=== PATIENT | female | born 1970 ===

== ENCOUNTER 2018-08-26 00:06 | Day surgery (SDC) | payer SELFPAY ==
[~2018-08-26] VITALS: Ht 149.9 cm; Wt 51.3 kg
[2018-08-26] VITALS (7 sets, daily range): BP systolic 88–117; BP diastolic 55–83
[~2018-08-26 00:06] MED LIST: AMOX-362 PO; CHOL10005 PO; IRON18TA2 PO; LORA-629 PO; PANT40TA65 PO
[2018-08-26] MEDS ORDERED: NORMOSOL R SOLN(*) 1000 ML BAG 1,000 ML IV PRN (06:45)
[2018-08-26] MEDS ORDERED: LIDOCAINE/SOD BICARB 8.4% SYR ID ONE (06:45)
[2018-08-26] MEDS ORDERED: PROPOFOL EMUL(*) 10MG/ML 20 ML 40 ML ONE (07:12)
[2018-08-26] MEDS ORDERED: SUCR1TAB85 PO (08:17)
--- NOTE | 2018-08-26 08:20 | Short(Outpt) Discharge Summary ---
Discharge Summary Reason for Hosp/Final Diag: (1) [facility] Hospital Course & Plan: pt with anemia, melena presented for egd. she tolerated the procedure well. hb will be checked. will prescribe protonix and sucralfate. pt will be discharged home when criteria met. Departure Discharge to: Home Discharge Instructions Home Meds Active Scripts Sucralfate (CARAFATE) 1 Gm Tablet, 1 GM PO Q6H, #90 TAB Prov:JESUS NUR 08/26/18 Reported Medications Iron (IRON) 18 Mg Tablet, PO TIDCF 08/24/18 Loratadine (LORATADINE) 10 Mg Tablet, 10 MG PO DAILY 08/24/18 Cholecalciferol (Vitamin D3) (VITAMIN D3) 1,000 Unit Tablet, 1000 UNIT PO DAILY, TAB 08/24/18 Pantoprazole Sodium (PANTOPRAZOLE SODIUM) 40 Mg Tablet.dr, 40 MG PO QDAY, TAB.SR 08/24/18 Amoxicillin (AMOXICILLIN) 500 Mg Capsule, PO Q8H, #15 CAPSULE 08/24/18 Diet: Regular Activity: As Tolerated Special Instructions: taken protonix 40 mg by mouth twice/day. taken sucralfate as prescribed. we will call you in 10 days with biopsy results. JESUS NUR August 26, 2018 08:20
--- NOTE | 2018-08-26 08:31 | NUR ---
lab here to draw hgb.
--- NOTE | 2018-08-26 08:37 | NUR ---
EATING APPLE SAUCE. DENIES PAIN.
--- NOTE | 2018-08-26 09:00 | NUR ---
BP DROPPED WITH STANDING. REPORTS FEELING A LITTLE DIZZY. ASSISTED TO BED. BOLUS OF NR GIVEN
--- NOTE | 2018-08-26 09:20 | NUR ---
ORTHOSTATIC VSS. BP IMPROVED AFTER FLUID BOLUS. IV DC'D CATHLON INTACT. DRESSED SELF. DISCHARGE INSTRUCTIONS REVIEWED WITH PT AND HER BOTH STATE UNDERSTANDING. DR NUR REVIEWED DISCHARGE INSTRUCTIONS IN [facility] AND PLAN FOR FOLLOW UP.
== END 2018-08-26 09:20 | disposition home or self-care (01) ==
LOC: OR 00:06
PROVIDERS: ATTEND Surgery
DX: K29.70 Gastritis, unspecified, without bleeding (principal)
CPT/HCPCS: 43239; 85018; 87077; 88305; 88342; J2704

== ENCOUNTER → 2018-10-04 | Outpatient (CLI) | payer SELFPAY ==
[~2018-10-04] MED LIST changes: +SUCR1TAB85 PO
== END ==
LOC: LAB 15:15
PROVIDERS: ATTEND Surgery
DX: K92.1 Melena (principal)
CPT/HCPCS: 36415; 85018